=== PATIENT | female | born 2000 | race Two or more races ===

== ENCOUNTER 2019-10-25 09:12 | Inpatient (IN) | payer MEDICAID, OTHER ==
[~2019-10-25] VITALS: Ht 170.2 cm; Wt 60.2 kg
[2019-10-25] MEDS ORDERED: IOHEXOL 350 MG/ML 100ML IJ ONE (09:59)
[2019-10-25 10:02] LABS: Basophils # (auto) 0 uL; Basophils % (auto) 0.6 % (0.0-2.0); Eosinophils # (auto) 0 uL; Eosinophils % (auto) 0.4 % (0.0-7.0); Hematocrit 37.3 % (36.0-46.0); Hemoglobin 12.7 g/dL (12.2-16.2); Lymphocytes # (auto) 0.6 uL; Lymphocytes % (auto) 11.6 % (10.0-50.0); Mean Corpuscular Hemoglobin 29.1 pg (28.0-32.0); Mean Corpuscular Volume 85.5 fL (80.0-100.0); Monocytes # (auto) 0.3 uL; Neutrophils % (auto) 80.4 % (37.0-80.0); Red Blood Cells 4.36 10^6/uL (4.0-5.20); Red Cell Distribution Width 14.6 % (11.8-14.3)
[2019-10-25 10:07] LABS: Platelet Count (auto) 97 10^3/uL (140-450)
[2019-10-25] MEDS ORDERED: SODIUM CHLORIDE 0.9% 1,000 ML IV ONE (10:12)
[2019-10-25 10:16] LABS: Alanine Aminotransferase 23 U/L (13-56); Albumin 3.5 g/dL (3.4-5.0); Anion Gap 6 (5-15); Aspartate Aminotransferase 23 U/L (15-37); Blood Urea Nitrogen 8 mg/dL (7-18); Calcium 8.8 mg/dL (8.5-10.1); Carbon Dioxide 28 mmol/L (21-32); Chloride 104 mmol/L (98-107); GFR African American 103 mL/min; GFR Non-African American 85 mL/min; Glucose 78 mg/dL (74-106); Potassium 3.1 mmol/L (3.5-5.1); Sodium 138 mmol/L (136-145)
[2019-10-25 10:20] LABS: Alkaline Phosphatase 94 U/L (45-117); Bilirubin, Total 0.9 mg/dL (0.2-1.0); Total Protein 8.5 g/dL (6.4-8.2)
[2019-10-25 10:23] LABS: INR 1.18 (0.9-1.15); Partial Thromboplastin Time 55.2 sec (23.64-32.05)
[2019-10-25] MEDS ORDERED: POTASSIUM EFFERVESENT TAB 25 MEQ PO ONE (10:30)
[2019-10-25] MEDS ORDERED: HEPARIN SODIUM (PORCINE) 5000 UNITS/ML 1ML VIAL IV ONE (11:00)
[2019-10-25] MEDS ORDERED: HEPARIN SODIUM (PORCINE) 5000 UNITS/ML 1ML VIAL ONE ×3 (11:14)
[2019-10-25] MEDS ORDERED: ACETAMINOPHEN 500 MG TAB PO PRN (13:15)
[2019-10-25] MEDS ORDERED: ONDANSETRON HCL 4 MG/2 ML VIAL IV PRN (13:15)
[2019-10-25] MEDS ORDERED: MORPHINE SULF INJ 2 MG/ML SYRINGE 1ML IV PRN (13:15)
[2019-10-25] MEDS: SODIUM CHLORIDE 0.9% 1,000 ML IV SCH ×2 (13:34→23:15)
--- NOTE | 2019-10-25 16:42 | NUR ---
Telemetry admit from ER: RUBEN MENON admitted to Telemetry unit after SBAR received. Patient oriented to KRYSTIAN LARSEN, RN primary RN, unit, room, bed, and unit policies regarding patient care and visiting hours. Patient NOT BROUGHT TO FLOOR ON TELE UNIT. weighed by bedscale and encouraged to call if they need something. All questions and concerns addressed, patient verbalized understanding.
--- NOTE | 2019-10-25 17:10 | NUR ---
Upon admission assessment patient states "Occasional thoughts of self harm." Charge nurse Jen notified, Tato Desai NP notified. New orders placed. Read back and verified.
--- NOTE | 2019-10-25 18:35 | NUR ---
Patient placed on tele unit #58. ST at 107.
--- NOTE | 2019-10-25 19:18 | NUR ---
Closing note: Patient resting in bed. No S/S of pain, distress or SOB at this time. Care endorsed to NOC HELLEN Green.
--- NOTE | 2019-10-25 19:50 | NUR ---
Opening Shift Note Assumed care of patient, awake and alert. No S/S of distress/SOB. Patient complained of pain /10, will administer PRN pain medications. Instructed on POC and to call for assist PRN, will continue to monitor for changes Q1hr and PRN. Two friends at bedside.
[2019-10-25] MEDS: HYDROcodone-ACET 5/325MG TAB PO PRN (20:34)
[2019-10-25 21:14] LABS: Urine Bacteria FEW /hpf (None Seen); Urine Blood 1+ /uL (Negative); Urine Specific Gravity 1.009 (1.001-1.035); Urine WBC 1 /hpf (0 - 5)
[2019-10-25 21:38] VITALS: BP 129/83
[2019-10-25 21:39] VITALS: BP 116/76
[2019-10-25] MEDS: ENOXAPARIN SOD 60 MG/0.6 ML SYRINGE SC SCH (22:12)
[2019-10-26 05:57] VITALS: BP 111/62
[2019-10-26 08:00] VITALS: BP 120/76
--- NOTE | 2019-10-26 08:11 | NUR ---
OPENING SHIFT NOTE: PATIENT AWAKE SIDE LYING IN BED. A/OX4, ABLE TO ANSWER ALL QUESTIONS APPROPRIATELY. INSTRUCTED ON USE OF CALL LIGHT. RESPIRATIONS EVEN AND UNLABORED. PATIENT UPDATED ON PLAN OF CARE, ADDRESSED CONCERNS. BED IN LOWEST LOCKED POSITION. WILL CONTINUE TO MONITOR.
[2019-10-26] MEDS ORDERED: FAMOTIDINE 20 MG TAB PO SCH (10:00)
[2019-10-26] MEDS: SODIUM CHLORIDE 0.9% 1,000 ML IV SCH (10:04)
[2019-10-26] MEDS: ENOXAPARIN SOD 60 MG/0.6 ML SYRINGE SC SCH (10:04)
[2019-10-26] MEDS: HYDROcodone-ACET 5/325MG TAB PO PRN (10:04)
--- NOTE | 2019-10-26 10:05 | NUR ---
TELE PSYCH CONSULT PLACED: GIOVANNA MONITOR SETUP AT BEDSIDE.
--- NOTE | 2019-10-26 10:53 | NUR ---
PATIENT REPORTING HEADACHE, AND COUGH. THIS RN NOTED MOIST BARKING COUGH, NO SPUTUM PRODUCTION. PATIENT REPORTS FEELING "LIKE I HAVE HAD A COLD OR FLU FOR A WEEK, AND I THOUGHT IT WAS GETTING BETTER."
[2019-10-26 12:00] VITALS: BP 110/70
--- NOTE | 2019-10-26 12:22 | NUR ---
MD RAAD VERDUGO: PATIENT TO BE SEEN BY NETWORK SECURITY OFFICER, THEN IF OKAY TO DC, PATIENT IS CLEARED TO GO HOME.
--- NOTE | 2019-10-26 12:23 | NUR ---
TELE PSYCH CONSULT CANCELLED, PATIENT DENIES ANY THOUGHTS TO HARM SELF.
[2019-10-26 13:35] LABS: Potassium 3.9 mmol/L (3.5-5.1)
--- NOTE | 2019-10-26 14:46 | NUR ---
PATIENT DISCHARGED: ALL EDUCATION MATERIALS GIVEN TO PATIENT, IV DISCONTINUED MANUAL PRESSURE APPLIED. TELE BOX RETURN TO CARDIO UNIT. PATIENT LEFT WITH ALL BELONGINGS, AND ESCORTED OUT BY HELLEN DAVALOS WITHOUT INCIDENCE VIA TAXI.
--- NOTE | 2019-10-26 14:48 | NUR ---
Discharge instructions given as ordered. Encourage to follow up with PMD as instructed. All questions and concerns addressed. Patient verbalized understanding. Medication reconciliation form completed and copy given to patient. . IV removed with catheter intact, pressure dressing applied, Telemetry unit returned to ICU. Patient taken to vehicle via wheelchair with all personal belongings, accompanied by staff and family member. No distress noted at time of departure.
== END 2019-10-26 14:46 | disposition home or self-care (01) | DRG 134 ==
LOC: EDBD 09:12 → ER 09:12 → TELE 09:13 → TELE-WESTW 16:42
PROVIDERS: ADMIT Nurse Practitioner Acute Care; ATTEND Internal Medicine
DX: I26.99 Other pulmonary embolism without acute cor pulmonale (principal); D68.59 Other primary thrombophilia; E87.6 Hypokalemia; F17.210 Nicotine dependence, cigarettes, uncomplicated; Z79.899 Other long term (current) drug therapy
CPT/HCPCS: 36415; 71275; 80048; 80053; 81001; 81241; 84484; 85025; 85610; 85730; 93005; 93306; 93970; 96361; 96374; G0378

== ENCOUNTER 2020-04-25 10:00 | Emergency (ER) | payer MEDICAID ==
[~2020-04-25] VITALS: Ht 165.1 cm; Wt 59.0 kg
[2020-04-25 10:26] VITALS: BP 153/94
== END 2020-04-25 11:00 | disposition home or self-care (01) ==
LOC: ER 10:00
DX: S16.1XXA Strain of muscle, fascia and tendon at neck level, initial encounter (principal); Y04.0XXA Assault by unarmed brawl or fight, initial encounter; Y93.89 Activity, other specified; Y92.89 Other specified places as the place of occurrence of the external cause; Y99.8 Other external cause status
CPT/HCPCS: 70450; 72125